=== PATIENT | female | born 1980 | race American Indian/Alaskan Native ===

== ENCOUNTER 2020-06-14 09:23 | Emergency (ER) | payer OTHER ==
--- NOTE | 2020-06-14 10:29 | Emergency Department Report ---
ED General Adult HPI - General Chief complaint: Dyspnea/Respdistress Stated complaint: SHORTNESS OF BREATH Time Seen by Provider: 06/14/20 10:17 Source: patient Mode of arrival: Ambulatory Limitations: No Limitations - History of Present Illness Initial comments: 39-year-old -Vin[place] female patient presents with complaints of shortness of breath x4 days. She reports she was seen at an urgent care on Wednesday and was treated for bronchitis with a nebulizer treatment and a prescription for steroids and azithromycin for home. Patient states her symptoms initially improved and then began to worsen the next day. She denies any fever/chills/sweats, chest pain, hemoptysis, leg pain/swelling, nausea/vomiting/diarrhea/abdominal pain, recent long travel/car rides, history of DVT/PE/cancer, or hormone use. Shortness of breath worsens with lying on her side. She also complains of nasal congestion. She denies any prior medical history. Patient also reports she had a negative Covid test at the urgent care. - Related Data Previous Rx's Medication Instructions Recorded Last Taken Type levoFLOXacin [Levaquin] 750 mg PO QDAY 5 Days #5 tablet 06/14/20 Unknown Rx Allergies Allergy/AdvReac Type Severity Reaction Status Date / Time No Known Allergies Allergy Unverified 06/14/20 09:29 ED Review of Systems ROS: Stated complaint: SHORTNESS OF BREATH Other details as noted in HPI Constitutional: malaise. denies: diaphoresis, fever, weakness ENT: congestion. denies: throat pain Respiratory: cough (Mild), shortness of breath Cardiovascular: denies: chest pain Endocrine: denies: excessive sweating Gastrointestinal: denies: abdominal pain, nausea, vomiting Musculoskeletal: denies: back pain Skin: denies: rash, lesions, change in color Neurological: denies: headache Hematological/Lymphatic: denies: swollen glands ED Past Medical Hx - Past Medical History Additional medical history: ANEMIA - Surgical History Hx Cholecystectomy: Yes - Social History Smoking Status: Current Some Day Smoker Substance Use Type: Marijuana - Medications Home Medications: Home Medications Medication Instructions Recorded Confirmed Last Taken Type levoFLOXacin [Levaquin] 750 mg PO QDAY 5 Days #5 tablet 06/14/20 Unknown Rx ED Physical Exam - General Limitations: No Limitations General appearance: alert, in no apparent distress, obese - Head Head exam: Present: atraumatic, normocephalic - Eye Eye exam: Present: normal appearance. Absent: scleral icterus - ENT ENT exam: Present: normal orophraynx, mucous membranes moist - Neck Neck exam: Present: normal inspection, full ROM. Absent: lymphadenopathy - Respiratory Respiratory exam: Present: wheezes (Left upper lung lobe). Absent: respiratory distress, rales, rhonchi, stridor - Cardiovascular Cardiovascular Exam: Present: regular rate, normal rhythm, normal heart sounds - GI/Abdominal GI/Abdominal exam: Present: soft. Absent: tenderness - Extremities Exam Extremities exam: Present: full ROM. Absent: calf tenderness (No swelling or tenderness noted to legs bilateral) - Back Exam Back exam: Present: normal inspection, full ROM - Neurological Exam Neurological exam: Present: alert, oriented X3 - Psychiatric Psychiatric exam: Present: normal affect, normal mood - Skin Skin exam: Present: warm, dry, intact, normal color. Absent: rash, cyanosis, diaphoretic, pallor ED Course Vital Signs 06/14/20 06/14/20 09:26 10:40 Temperature 97.5 F L Pulse Rate 85 Respiratory 17 Rate Blood Pressure 111/91 O2 Sat by Pulse 98 100 Oximetry ED Medical Decision Making - Lab Data Result diagrams: 06/14/20 10:20 06/14/20 10:20 Lab Results 06/14/20 06/14/20 Range/Units 10:20 10:20 WBC 6.7 (4.5-11.0) K/mm3 RBC 4.14 (3.65-5.03) M/mm3 Hgb 11.6 (10.1-14.3) gm/dl Hct 35.4 (30.3-42.9) % MCV 85 (79-97) fl MCH 28 (28-32) pg MCHC 33 (30-34) % RDW 15.3 H (13.2-15.2) % Plt Count 309 (140-440) K/mm3 Lymph % (Auto) 23.9 (13.4-35.0) % [place] % (Auto) 4.2 (0.0-7.3) % Eos % (Auto) 1.1 (0.0-4.3) % Baso % (Auto) 0.7 (0.0-1.8) % Lymph # (Auto) 1.6 (1.2-5.4) K/mm3 [place] # (Auto) 0.3 (0.0-0.8) K/mm3 Eos # (Auto) 0.1 (0.0-0.4) K/mm3 Baso # (Auto) 0.0 (0.0-0.1) K/mm3 Seg Neutrophils % 70.1 H (40.0-70.0) % Seg Neutrophils # 4.7 (1.8-7.7) K/mm3 Sodium 137 (137-145) mmol/L Potassium 3.9 (3.6-5.0) mmol/L Chloride 103.9 (98-107) mmol/L Carbon Dioxide 23 (22-30) mmol/L Anion Gap 14 mmol/L BUN 17 (7-17) mg/dL Creatinine 0.7 (0.6-1.2) mg/dL Estimated GFR > 60 ml/min BUN/Creatinine Ratio 24 % Glucose 92 (65-100) mg/dL Calcium 9.1 (8.4-10.2) mg/dL Total Bilirubin < 0.20 (0.1-1.2) mg/dL AST 15 (5-40) units/L ALT 16 (7-56) units/L Alkaline Phosphatase 81 (35-129) units/L Troponin T < 0.010 (0.00-0.029) ng/mL NT-Pro-B Natriuret Pep 43.36 (0-450) pg/mL Total Protein 7.6 (6.3-8.2) g/dL Albumin 3.7 L (3.9-5) g/dL Albumin/Globulin Ratio 0.9 % - EKG Data EKG shows normal: sinus rhythm Rate: normal - Radiology Data Radiology results: report reviewed CHEST 2 VIEWS INDICATION / CLINICAL INFORMATION: shortness of breath. COMPARISON: None available. FINDINGS: SUPPORT DEVICES: None. HEART / MEDIASTINUM: No significant abnormality. LUNGS / PLEURA: No significant pulmonary or pleural abnormality. No pneumothorax. ADDITIONAL FINDINGS: No significant additional findings. IMPRESSION: No acute cardiopulmonary abnormality. - Medical Decision Making 39-year-old -Vin[place] female patient presents with complaints of shortness of breath x4 days. She reports she was seen at an urgent care on and was treated for bronchitis with a nebulizer treatment and a prescription for steroids and azithromycin for home. Patient states her symptoms initially improved and then began to worsen the next day. She denies any fever/chills/sweats, chest pain, hemoptysis, leg pain/swelling, nausea/vomit ing/diarrhea/abdominal pain, recent long travel/car rides, history of DVT/PE/cancer, or hormone use. Shortness of breath worsens with lying on her side. She also complains of nasal congestion. She denies any prior medical history. She also reports that her Covid test was negative at the urgent care There is wheezing noted to the left upper lung lobe on exam. Ambulatory and post ambulatory pulse ox are not 100% on room air. Chest x-ray is normal. CBC, CMP, troponin, BNP, and EKG are normal. Patient given hour-long DuoNe. She states her shortness of breath is improved with treatment. Patient to discontinue azithromycin and start Levaquin. Recommend follow-up with PCP in 3 days for reeval. Her vitals remain normal, she is well-appearing, she is stable for discharge home. Strict return precautions were discussed in great detail with patient who states understanding. Critical care attestation.: If time is entered above; I have spent that time in minutes in the direct care of this critically ill patient, excluding procedure time. ED Disposition Clinical Impression: Acute bacterial bronchitis Disposition: DC-01 TO HOME OR SELFCARE Is pt being admited?: No Condition: Stable Instructions: Acute Bronchitis (ED) Prescriptions: levoFLOXacin [Levaquin] 750 mg PO QDAY 5 Days #5 tablet
--- NOTE | 2020-06-14 10:50 | XRay Report ---
CHEST 2 VIEWS INDICATION / CLINICAL INFORMATION: shortness of breath. COMPARISON: None available. FINDINGS: SUPPORT DEVICES: None. HEART / MEDIASTINUM: No significant abnormality. LUNGS / PLEURA: No significant pulmonary or pleural abnormality. No pneumothorax. ADDITIONAL FINDINGS: No significant additional findings. IMPRESSION: No acute cardiopulmonary abnormality. Signer Name: Sherman Farrell MD Signed: 06/14/2020 10:45 AM Workstation Name: [id number]
[2020-06-14 11:01] LABS: Basophils % (Auto) 0.7 % (0.0-1.8); Eosinophils # (Auto) 0.1 K/mm3 (0.0-0.4); Eosinophils % (Auto) 1.1 % (0.0-4.3); Hematocrit 35.4 % (30.3-42.9); Hemoglobin 11.6 gm/dl (10.1-14.3); Lymphocytes # (Auto) 1.6 K/mm3 (1.2-5.4); Lymphocytes % (Auto) 23.9 % (13.4-35.0); Mean Corpuscular HGB Conc 33 % (30-34); Mean Corpuscular Volume 85 fl (79-97); Monocytes # (Auto) 0.3 K/mm3 (0.0-0.8); Monocytes % (Auto) 4.2 % (0.0-7.3); Platelet Count 309 K/mm3 (140-440); Red Blood Count 4.14 M/mm3 (3.65-5.03); Red Cell Distribution Width 15.3 % (13.2-15.2)
[2020-06-14 11:08] LABS: Alanine Aminotransferase 16 units/L (7-56); Albumin 3.7 g/dL (3.9-5); BUN/Creatinine Ratio 24; Blood Urea Nitrogen 17 mg/dL (7-17); Calcium 9.1 mg/dL (8.4-10.2); Hemolysis Index 0
[2020-06-14] MEDS ORDERED: IPRATROPIUM 0.02% NEBU 2.5 ML IH ONE (11:13)
[2020-06-14] MEDS ORDERED: ALBUTEROL 2.5 MG/3 ML NEBU IH ONE (11:13)
[2020-06-14] MEDS ORDERED: dexAMETHasone 20 MG/5 ML VIAL IV ONE (12:48)
[2020-06-14 12:59] VITALS: BP 110/86
== END 2020-06-14 13:12 | disposition home or self-care (01) ==
LOC: ED 09:23
DX: J20.9 Acute bronchitis, unspecified (principal); B96.89 Other specified bacterial agents as the cause of diseases classified elsewhere; F17.200 Nicotine dependence, unspecified, uncomplicated; F12.10 Cannabis abuse, uncomplicated; Z90.49 Acquired absence of other specified parts of digestive tract; Z79.2 Long term (current) use of antibiotics
CPT/HCPCS: 36415; 71046; 80053; 83880; 84484; 85025; 93005; 94640; 96374; 99284; J1100

== ENCOUNTER 2020-08-19 11:10 | Emergency (ER) | payer OTHER ==
--- NOTE | 2020-08-19 11:51 | Event Note ---
ED Screening Note ED Screening Note: Patient is a 39-year-old female presents emergency room with complaints of a left frontal headache that radiates to the left temporal region that began 2 days ago. She states that it feels like a throbbing. She has not taken anything for it. She states that this morning she began to have lightheadedness and dizziness and believe that she may have gotten up too fast. She states that she has been having some blurry vision in her left eye. She has associated nausea. She denies any vomiting, diarrhea, fever, numbness, weakness, gait disturbance, speech disturbance, chest pain, shortness of breath. She has a past medical history of anemia but has never been transfused, she states she had declined transfusion in the past. No allergies to medications. Last menstrual cycle 07/31/2020. This initial assessment/diagnostic orders/clinical plan/treatment(s) is/are subject to change based on patients health status, clinical progression and re- assessment by fellow clinical providers in the ED. Further treatment and workup at subsequent clinical providers discretion. Patient/guardian urged not to elope from the ED as their condition may be serious if not clinically assessed and managed. Initial orders include: labs, EKG, CT, UA
[2020-08-19 12:26] LABS: Bacteria,Urine 1+ /HPF (Negative); Bilirubin,Urine NEG (Negative); Blood,Urine SM (Negative); Color,Urine Yellow (Yellow); Mucus,Urine FEW /HPF; Protein,Urine <15 mg/dL mg/dL (Negative); Urobilinogen,Urine < 2.0 mg/dL (<2.0)
[2020-08-19 14:24] LABS: Basophils % (Auto) 0.4 % (0.0-1.8); Eosinophils # (Auto) 0.1 K/mm3 (0.0-0.4); Hematocrit 38.2 % (30.3-42.9); Hemoglobin 12.7 gm/dl (10.1-14.3); Lymphocytes # (Auto) 2.1 K/mm3 (1.2-5.4); Lymphocytes % (Auto) 32.7 % (13.4-35.0); Mean Corpuscular HGB Conc 33 % (30-34); Mean Corpuscular Volume 86 fl (79-97); Monocytes # (Auto) 0.3 K/mm3 (0.0-0.8); Monocytes % (Auto) 5.4 % (0.0-7.3); Platelet Count 318 K/mm3 (140-440); Red Blood Count 4.43 M/mm3 (3.65-5.03); Red Cell Distribution Width 15.2 % (13.2-15.2)
--- NOTE | 2020-08-19 14:59 | Cat Scan Report ---
CT head/brain wo con INDICATION: dizziness, lightheaded, MEEKS, blurry vision left eye. TECHNIQUE: Routine CT head. All CT scans at this location are performed using CT dose reduction for A LAUREANO by means of automated exposure control. COMPARISON: None. FINDINGS: Intracranial: Mcdaniels-white matter differentiation is maintained. No intracranial hemorrhage. No extra a xial collection. No hydrocephalus. No herniation. Sinuses: Paranasal sinuses and mastoid air cells are essentially clear. Orbits: Globes are intact. Calvarium: No acute fracture. IMPRESSION: 1. No acute intracranial abnormality. Signer Name: Tone Belle MD Signed: 08/19/2020 2:55 PM Workstation Name: [email or web address]
[2020-08-19 15:02] LABS: Alanine Aminotransferase 29 units/L (7-56); Albumin 4.1 g/dL (3.9-5); BUN/Creatinine Ratio 31; Blood Urea Nitrogen 25 mg/dL (7-17); Calcium 9.6 mg/dL (8.4-10.2); Hemolysis Index 4
[2020-08-19] MEDS ORDERED: diphenhydrAMINE 50 MG/ML VIAL IV ONE (15:28)
[2020-08-19] MEDS ORDERED: METOCLOPRAMIDE 10 MG/2 ML INJ IV ONE (15:28)
[2020-08-19] MEDS ORDERED: SODIUM CHLORIDE 0.9% 1000 ML 1,000 ML IV ONE (15:28)
[2020-08-19] MEDS ORDERED: KETOROLAC 30 MG/1 ML INJ IV ONE (15:28)
--- NOTE | 2020-08-19 15:29 | Emergency Department Report ---
ED General Adult HPI - General Chief complaint: Dizziness Stated complaint: LIGHTHEADED/DIZZY/BLURRY VISION Time Seen by Provider: 08/19/20 11:46 Source: patient Mode of arrival: Ambulatory Limitations: No Limitations - History of Present Illness Initial comments: Patient is a 39-year-old female presents emergency room with complaints of a left frontal headache that radiates to the left temporal region that began 2 days ago. She states that it feels like a throbbing. She has not taken anything for it. She states that this morning she began to have lightheadedness and dizziness and believe that she may have gotten up too fast. She states that she has been having some blurry vision in her left eye. She has associated nausea. She denies any vomiting, diarrhea, fever, numbness, weakness, gait disturbance, speech disturbance, chest pain, shortness of breath. She has a past medical history of anemia but has never been transfused, she states she had declined transfusion in the past. No allergies to medications. Last menstrual cycle 07/31/2020. - Related Data Previous Rx's Medication Instructions Recorded Last Taken Type levoFLOXacin [Levaquin] 750 mg PO QDAY 5 Days #5 tablet 06/14/20 Unknown Rx predniSONE [Deltasone] 20 mg PO BID 3 Days #6 tab 06/14/20 Unknown Rx Butalb/Acetaminophen/Caffeine 1 cap PO Q8HR PRN #12 cap 08/19/20 Unknown Rx [Fioricet 50-300-40 mg CAP] Metoclopramide [Reglan] 10 mg PO Q8HR PRN #12 tablet 08/19/20 Unknown Rx diphenhydrAMINE [Benadryl CAP] 25 mg PO Q8HR PRN #12 capsule 08/19/20 Unknown Rx Allergies Allergy/AdvReac Type Severity Reaction Status Date / Time No Known Allergies Allergy Unverified 06/14/20 09:29 ED Review of Systems ROS: Stated complaint: LIGHTHEADED/DIZZY/BLURRY VISION Other details as noted in HPI Comment: All other systems reviewed and negative ED Past Medical Hx - Past Medical History Previous Medical History?: Yes Additional medical history: ANEMIA - Surgical History Past Surgical History?: Yes Hx Cholecystectomy: Yes - Social History Smoking Status: Current Some Day Smoker Substance Use Type: Marijuana - Medications Home Medications: Home Medications Medication Instructions Recorded Confirmed Last Taken Type levoFLOXacin [Levaquin] 750 mg PO QDAY 5 Days #5 tablet 06/14/20 Unknown Rx predniSONE [Deltasone] 20 mg PO BID 3 Days #6 tab 06/14/20 Unknown Rx Butalb/Acetaminophen/Caffeine 1 cap PO Q8HR PRN #12 cap 08/19/20 Unknown Rx [Fioricet 50-300-40 mg CAP] Metoclopramide [Reglan] 10 mg PO Q8HR PRN #12 tablet 08/19/20 Unknown Rx diphenhydrAMINE [Benadryl CAP] 25 mg PO Q8HR PRN #12 capsule 08/19/20 Unknown Rx ED Physical Exam - General Limitations: No Limitations General appearance: alert, in no apparent distress - Head Head exam: Present: atraumatic, normocephalic - Eye Eye exam: Present: normal appearance, PERRL, EOMI. Absent: periorbital swelling, periorbital tenderness Pupils: Present: normal accommodation - ENT ENT exam: Present: mucous membranes moist - Respiratory Respiratory exam: Present: normal lung sounds bilaterally. Absent: respiratory distress, wheezes, rales, rhonchi, stridor, chest wall tenderness, accessory muscle use, decreased breath sounds, prolonged expiratory - Cardiovascular Cardiovascular Exam: Present: regular rate, normal rhythm, normal heart sounds. Absent: systolic murmur, diastolic murmur, rubs, gallop - Neurological Exam Neurological exam: Present: alert, oriented X3, CN II-XII intact, normal gait. Absent: motor sensory deficit - Psychiatric Psychiatric exam: Present: normal affect, normal mood - Skin Skin exam: Present: warm, dry, intact ED Course Vital Signs 08/19/20 08/19/20 08/19/20 11:21 15:56 16:00 Temperature 98.5 F 97.9 F Pulse Rate 72 85 Respiratory 16 18 18 Rate Blood Pressure 130/94 130/70 [Right] O2 Sat by Pulse 99 Oximetry ED Medical Decision Making - Lab Data Result diagrams: 08/19/20 12:14 08/19/20 12:14 Lab Results 08/19/20 08/19/20 08/19/20 Range/Units 12:14 12:14 12:14 WBC 6.4 (4.5-11.0) K/mm3 RBC 4.43 (3.65-5.03) M/mm3 Hgb 12.7 (10.1-14.3) gm/dl Hct 38.2 (30.3-42.9) % MCV 86 (79-97) fl MCH 29 (28-32) pg MCHC 33 (30-34) % RDW 15.2 (13.2-15.2) % Plt Count 318 (140-440) K/mm3 Lymph % (Auto) 32.7 (13.4-35.0) % [place] % (Auto) 5.4 (0.0-7.3) % Eos % (Auto) 2.0 (0.0-4.3) % Baso % (Auto) 0.4 (0.0-1.8) % Lymph # (Auto) 2.1 (1.2-5.4) K/mm3 [place] # (Auto) 0.3 (0.0-0.8) K/mm3 Eos # (Auto) 0.1 (0.0-0.4) K/mm3 Baso # (Auto) 0.0 (0.0-0.1) K/mm3 Seg Neutrophils % 59.5 (40.0-70.0) % Seg Neutrophils # 3.8 (1.8-7.7) K/mm3 Sodium 140 (137-145) mmol/L Potassium 4.2 (3.6-5.0) mmol/L Chloride 105.0 (98-107) mmol/L Carbon Dioxide 25 (22-30) mmol/L Anion Gap 14 mmol/L BUN 25 H (7-17) mg/dL Creatinine 0.8 (0.6-1.2) mg/dL Estimated GFR > 60 ml/min BUN/Creatinine Ratio 31 % Glucose 78 (65-100) mg/dL Calcium 9.6 (8.4-10.2) mg/dL Total Bilirubin 0.20 (0.1-1.2) mg/dL AST 33 (5-40) units/L ALT 29 (7-56) units/L Alkaline Phosphatase 95 (35-129) units/L Total Protein 7.9 (6.3-8.2) g/dL Albumin 4.1 (3.9-5) g/dL Albumin/Globulin Ratio 1.1 % HCG, Qual Negative (Negative) Urine Color (Yellow) Urine Turbidity (Clear) Urine pH (5.0-7.0) Ur Specific [place] (1.003-1.030) Urine Protein (Negative) mg/dL Urine Glucose (UA) (Negative) mg/dL Urine Ketones (Negative) mg/dL Urine Blood (Negative) Urine Nitrite (Negative) Urine Bilirubin (Negative) Urine Urobilinogen (<2.0) mg/dL Ur Leukocyte Esterase (Negative) Urine WBC (Auto) (0.0-6.0) /HPF Urine RBC (Auto) (0.0-6.0) /HPF U Epithel Cells (Auto) (0-13.0) /HPF Urine Bacteria (Auto) (Negative) /HPF Urine Mucus /HPF 08/19/20 Range/Units 12:15 WBC (4.5-11.0) K/mm3 RBC (3.65-5.03) M/mm3 Hgb (10.1-14.3) gm/dl Hct (30.3-42.9) % MCV (79-97) fl MCH (28-32) pg MCHC (30-34) % RDW (13.2-15.2) % Plt Count (140-440) K/mm3 Lymph % (Auto) (13.4-35.0) % [place] % (Auto) (0.0-7.3) % Eos % (Auto) (0.0-4.3) % Baso % (Auto) (0.0-1.8) % Lymph # (Auto) (1.2-5.4) K/mm3 [place] # (Auto) (0.0-0.8) K/mm3 Eos # (Auto) (0.0-0.4) K/mm3 Baso # (Auto) (0.0-0.1) K/mm3 Seg Neutrophils % (40.0-70.0) % Seg Neutrophils # (1.8-7.7) K/mm3 Sodium (137-145) mmol/L Potassium (3.6-5.0) mmol/L Chloride (98-107) mmol/L Carbon Dioxide (22-30) mmol/L Anion Gap mmol/L BUN (7-17) mg/dL Creatinine (0.6-1.2) mg/dL Estimated GFR ml/min BUN/Creatinine Ratio % Glucose (65-100) mg/dL Calcium (8.4-10.2) mg/dL Total Bilirubin (0.1-1.2) mg/dL AST (5-40) units/L ALT (7-56) units/L Alkaline Phosphatase (35-129) units/L Total Protein (6.3-8.2) g/dL Albumin (3.9-5) g/dL Albumin/Globulin Ratio % HCG, Qual (Negative) Urine Color Yellow (Yellow) Urine Turbidity Clear (Clear) Urine pH 5.0 (5.0-7.0) Ur Specific [place] 1.021 (1.003-1.030) Urine Protein <15 mg/dl (Negative) mg/dL Urine Glucose (UA) Neg (Negative) mg/dL Urine Ketones Neg (Negative) mg/dL Urine Blood Sm (Negative) Urine Nitrite Neg (Negative) Urine Bilirubin Neg (Negative) Urine Urobilinogen < 2.0 (<2.0) mg/dL Ur Leukocyte Esterase Neg (Negative) Urine WBC (Auto) 1.0 (0.0-6.0) /HPF Urine RBC (Auto) 5.0 (0.0-6.0) /HPF U Epithel Cells (Auto) 2.0 (0-13.0) /HPF Urine Bacteria (Auto) 1+ (Negative) /HPF Urine Mucus Few /HPF Vital Signs 08/19/20 08/19/20 08/19/20 11:21 15:56 16:00 Temperature 98.5 F 97.9 F Pulse Rate 72 85 Respiratory 16 18 18 Rate Blood Pressure 130/94 130/70 [Right] O2 Sat by Pulse 99 Oximetry - Radiology Data Radiology results: report reviewed Ordering Physician: JEANNETTE HOBBS Date of Service: 08/19/20 Procedure(s): CT head/brain wo con Accession Number(s): [id number] cc: JEANNETTE HOBBS CT head/brain wo con INDICATION: dizziness, lightheaded, MEEKS, blurry vision left eye. TECHNIQUE: Routine CT head. All CT scans at this location are performed using CT dose reduction for [place] by means of automated exposure control. COMPARISON: None. FINDINGS: Intracranial: Mcdaniels-white matter differentiation is maintained. No intracranial hemorrhage. No extra axial collection. No hydrocephalus. No herniation. Sinuses: Paranasal sinuses and mastoid air cells are essentially clear. Orbits: Globes are intact. Calvarium: No acute fracture. IMPRESSION: 1. No acute intracranial abnormality. Signer Name: Tone Belle MD Signed: 08/19/2020 2:55 PM Workstation Name: [email or web address] Transcribed By: MARÍA Dictated By: Tone Belle MD Electronically Authenticated By: Tone Belle MD Signed Date/Time: 08/19/201454 DD/ 52 TD/TT: - Medical Decision Making Patient is a 39-year-old female presents emergency room with complaints of a left frontal headache that radiates to the left temporal region that began 2 days ago. She states that it feels like a throbbing. She has not taken anything for it. She states that this morning she began to have lightheadedness and dizziness and believe that she may have gotten up too fast. She states that she has been having some blurry vision in her left eye. She has associated nausea. She denies any vomiting, diarrhea, fever, numbness, weakness, gait disturbance, speech disturbance, chest pain, shortness of breath. She has a past medical history of anemia but has never been transfused, she states she had declined transfusion in the past. No allergies to medications. Last menstrual cycle 07/31/2020. vitals are normal. no neuro deficits on exam. labs are normal. UA is WNL. CT head 1. No acute intracranial abnormality. offered pt IV meds and she politely declined. pt was given oral meds and MEEKS completely improved and she was feeling much better and ready to go home. symptoms likely related to complex migraine. pt given prescription for fioricet, reglan, benadryl. advised pt Please take medication as prescribed. Increase your water intake over the next several days. Follow-up with your primary care doctor. Follow-up with a neurologist. Return to emergency room for any new or worsening symptoms. Critical care attestation.: If time is entered above; I have spent that time in minutes in the direct care of this critically ill patient, excluding procedure time. ED Disposition Clinical Impression: Lightheaded Migraine headache Qualifiers: Migraine type: unspecified Status migrainosus presence: without status migrainosus Intractability: not intractable Qualified Code(s): G43.909 - Migraine, unspecified, not intractable, without status migrainosus Disposition: DC-01 TO HOME OR SELFCARE Is pt being admited?: No Does the pt Need Aspirin: No Condition: Stable Instructions: Migraine Headache, [id number], Dizziness, [id number] Additional Instructions: Please take medication as prescribed. Increase your water intake over the next several days. Follow-up with your primary care doctor. Follow-up with a neurologist. Return to emergency room for any new or worsening symptoms. Prescriptions: diphenhydrAMINE [Benadryl CAP] 25 mg PO Q8HR PRN #12 capsule PRN Reason: headache Butalb/Acetaminophen/Caffeine [Fioricet 50-300-40 mg CAP] 1 cap PO Q8HR PRN #12 cap PRN Reason: headache Metoclopramide [Reglan] 10 mg PO Q8HR PRN #12 tablet PRN Reason: headache Referrals: KIMBERLY JOHNSON MD [Primary Care Provider] - 2-3 Days CLAIRE CALZADA MD [Staff Physician] - 2-3 Days [facility] [Provider Group] - 2-3 Days ANGEL AHUMADA MD [Referring] - 2-3 Days Forms: Work/School Release Form(ED) Time of Disposition: 15:42 Print Language: TRINIDADIAN
[2020-08-19] MEDS ORDERED: METOCLOPRAMIDE 10 MG TAB PO ONE (15:41)
[2020-08-19] MEDS ORDERED: BUTALB/ACETAMINOPHEN/CAFFEINE TAB PO ONE (15:41)
[2020-08-19] MEDS ORDERED: diphenhydrAMINE 25 MG CAP PO ONE (15:41)
[2020-08-19 16:01] VITALS: BP 130/70
== END 2020-08-19 16:04 | disposition home or self-care (01) ==
LOC: ED 11:10
DX: G43.909 Migraine, unspecified, not intractable, without status migrainosus (principal); R42 Dizziness and giddiness; F12.90 Cannabis use, unspecified, uncomplicated; F17.200 Nicotine dependence, unspecified, uncomplicated; D64.9 Anemia, unspecified; Z79.899 Other long term (current) drug therapy; Z90.49 Acquired absence of other specified parts of digestive tract
CPT/HCPCS: 36415; 70450; 80053; 81001; 84703; 85025; 93005